=== PATIENT | female | born 1965 | race Caucasian/White ===

== ENCOUNTER → 2023-08-01 | Outpatient (CLI) | payer OTHER, SELFPAY ==
--- NOTE | 2023-08-01 16:00 | ASPSI_PTH ---
PATIENT: SOURAV WOODARD LOC: [facility] U#:[id number] AGE/SX: 57/F ROOM: RE08/01/[address]: Dr. Fish Paul MD : 1965 BED: DIS: 08/01/2023 SPEC #: [id number] RECD: 08/02/23 07:31 STATUS: DELMAR HEATHER #: [id number] GENA: 08/01/23 16:[address]: Fish Paul DEPT: CYTOLOGY RECD BY: eLonor Niño ENTERED: 08/02/23 08:46 SP TYPE: ASP MACIEJ FITZGERALD DR: ANISHA Roberts Tissues: A - Thyroid gland, NOS B - Thyroid gland, NOS C - Thyroid gland, NOS D - Thyroid gland, NOS Procedures: Surgery Specimen Level IV Cytospin Fluid Cytology Other HEADER OPERATION: Fine needle aspiration thyroid nodule right and left PRE-OP DIAGNOSIS: Multinodular goiter TISSUE SUBMITTED: A - FNA left thyroid nodule fluid, B - FNA left thyroid nodule x4 slides, C - FNA right thyroid nodule fluid, D - FNA right thyroid nodule x4 slides DIAGNOSIS CYTOLOGY A. Left thyroid nodule fluid, fine needle aspiration (cytospin and cell block): Consistent with benign follicular/colloid nodule ([place] Category II). Adequate for evaluation. See comment. B. Left thyroid nodule, fine needle aspiration (smears): Consistent with benign follicular/colloid nodule ([place] Category II). Adequate for evaluation. See comment. C. Right thyroid nodule fluid, fine needle aspiration (cytospin and cell block): Consistent with benign follicular/colloid nodule ([place] Category II). Adequate for evaluation. See comment. D. Right thyroid nodule, fine needle aspiration (smears): Consistent with benign follicular/colloid nodule ([place] Category II). Adequate for evaluation. See comment. SJ:rg 08/05/2023 COMMENT Correlation with clinical, radiologic findings and appropriate follow up are necessary. A-D. The [place] System for thyroid diagnostic categorization was used in the evaluation of this case. CYTOLOGY STUDY Slides are reviewed. CYTOLOGY GROSS A - Received is 15 ml of red fluid labeled with the patient's name and and designated per the requisition as left thyroid nodule. Submitted for cytology preparation including cell block. B - Received are four smears labeled with the patient's name and designated per the requisition as left thyroid nodule. Submitted for staining. C - Received is 15 ml of red fluid labeled with the patient's name and and designated per the requisition as right thyroid nodule. Submitted for cytology preparation including cell block. D - Received are four smears labeled with the patient's name and designated per the requisition as right thyroid nodule. Submitted for staining. / abeba 08/02/2023 TC:5 CPT: 86227 x4, 73593 x2
[2023-08-01 17:30] LABS: Calcium,Total 9.2 mg/dL (8.5-10.1)
[2023-08-02 07:41] LABS: PTHIN 48.1 pg/mL (18.4-80.1)
[2023-08-06 16:10] LABS: Thyroid Stim Immunoglob <0.10 IU/L (0.00-0.55)
== END | disposition home or self-care (01) ==
PROVIDERS: PCP Registered Nurse; Referring Provider Surgery; Visit Provider Surgery
DX: E04.2 Nontoxic multinodular goiter (principal)
CPT/HCPCS: 36415; 82310; 83970; 84445; 88108; 88161; 88305

== ENCOUNTER 2023-09-11 12:15 | Observation (INO) | payer OTHER, SELFPAY ==
[2023-09-06 09:40] LABS: Hemoglobin 14.6 g/dL (12.0-15.0); Mean Corp Hgb Conc 32.4 g/dL (32-36); Mean Corpuscular Hgb 30.6 pg (27.0-32.0); Mean Corpuscular Volume 94.3 fL (81-99); Mean Platelet Vol. 9.9 fl (6.2-12.0); Platelet Count 193 K/mm3 (150-450); RBC Distribution Width CV 13.8 % (11.6-14.6); RBC Distribution Width SD 47.8 fl (35.1-43.9); Red Blood Count 4.77 M/mm3 (4.2-5.4); White Blood Count 7.3 K/mm3 (4.4-11.0)
[2023-09-06 09:50] LABS: Prothrombin Time (Protime)PT. 12.7 SECONDS (11.7-14.9)
[2023-09-06 09:51] LABS: Partial Thromboplast Time 29.9 Seconds (24.1-36.2)
[2023-09-06 10:34] LABS: AST(SGOT) 15 U/L (15-37); Alanine Aminotransfer ALT/SGPT 19 U/L (13-56); Albumin, Serum 3.6 g/dL (3.2-5.0); Alkaline Phosphatase 80 U/L (45-117); Anion Gap 4 (5-15); BUN 22 mg/dL (7-18); Bilirubin, Direct 0.23 mg/dL (0.00-0.30); Calcium,Total 9.5 mg/dL (8.5-10.1); Chloride 103 mmol/L (98-107); Creatinine, Serum 0.78 mg/dL (0.55-1.02); EST Glomerular Filtration Rate 80 mL/min (>60); Est Glom Filt Rate - Afr Amer 97 mL/min (>60); Globulin 3.6 g/dL (2.2-4.2); Glucose 98 mg/dL (74-106); Potassium 3.8 mmol/L (3.5-5.1); Protein, Total 7.2 g/dL (6.4-8.2); Sodium Level 140 mmol/L (136-145)
[2023-09-11] VITALS (14 sets, daily range): BP systolic 112–134; BP diastolic 69–89; PULSE 76–88; RESP 12–18; TEMP 36.1–37.3; O2SAT 80–98; BMI 29.7
[2023-09-11] MEDS: Lactated Ringers 1,000 ML 15 ML IV ×3 (06:54→13:49)
--- NOTE | 2023-09-11 07:20 | PCM.HP.BLA ---
History and Physical Date of Service: 08/21/23 MR#: [id number] Acct: [id number] Name: SOURAV WOODARD Rep #: [id number] : 1965 Provider: Dr. Fish Paul MD Age/Sex: 58/F Location: [facility] Status: Signed Intake Vital Signs 08/01/2315:17 08/21/2309:21 Height 5 ft 5 in 5 ft 5 in Weight: 182 lb 185 lb BMI 30.2 30.7 BP 157/103 H Blood Pressure Location Rt brachial Position Sitting Respiration 18 18 Intake Visit Reasons: DISCUSS SURGERY FOR TOTAL THYROIDECTOMY Chief Complaint: thyroid nodules Supervisor Diagnostic Required: No Is patient in pain?: No Allergies Penicillins Allergy (Severe, Verified 08/21/23 09:21) HivesSulfa (Sulfonamide Antibiotics) Allergy (Severe, Verified 08/21/23 09:21) Hivesadhesive Allergy (Intermediate, Verified 08/21/23 09:21) Rashplastibase Allergy (Intermediate, Uncoded 08/21/23 09:21) Hives Medications albuterol sulfate 90 mcg/actuation aerosol inhaler 2 puff inhalation Q6H PRN 04/19/23 [History Confirmed 08/21/23] loratadine 10 mg capsule (Claritin Liqui-Gel) 10 mg PO DAILY 04/19/23 [History Confirmed 08/21/23] pantoprazole 40 mg tablet,delayed release 40 mg PO DAILY 04/19/23 [History Confirmed 08/21/23] rosuvastatin 20 mg tablet 20 mg PO DAILY 04/19/23 [History Confirmed 08/21/23] triamterene 37.5 mg-hydrochlorothiazide 25 mg capsule 1 cap PO DAILY 04/19/23 [History Confirmed 08/21/23] methimazole 10 mg tablet 10 mg PO DAILY #30 tabs 08/04/23 [Rx Confirmed 08/21/23] PFSH Medical History Acid reflux Anxiety Asthma Difficulty swallowing High cholesterol Hypertension Toxic multinodular goiter Surgical History History of cholecystectomy Previous section Family History Mother Thyroid disorder Parathyroid dysfunction Diabetes Kidney disease HypertensionFather LymphomaGrandfather Heart disease DiabetesDaughter Thyroid disorder Social History Smoking Status: Light Smoker (<10/day) alcohol intake: never substance use type: does not use HPI HPI HPI: Patient is a 58-year-old female who is known to me from prior consultation regarding bilateral thyroid nodularity as well as hyperthyroidism. Today a consultation visit came on 08/01/2023. She presents today to discuss further management of her diagnoses. She denies any significant updates and states that her biopsy site is no longer causing her any pain. She questions what the upside's and downsides are of pursuing surgery versus leaving her thyroid intact as is. She wishes to know these answers both from angle of compressive symptoms as well as with respect to her thyroid function. Below is recapitulated from patient's prior visit for ease of review: Patient is a 57-year-old female who presents for evaluation of thyroid nodules that have been under surveillance for some time. She also has a history of hyperthyroidism and has been on methimazole for the past 10 years. They are referred for surgical consultation from Dr. Hunter Vora of endocrinology. This was discovered over 10 years ago and patient states that she has been kept under surveillance with yearly ultrasounds for that time. She also notes that more recently she has been watched with an interval of 6 months due to more suspicious nodularity. She relates that she was on methimazole for at least the past 10 years due to hyperthyroidism. The majority of this following has been through her primary care office. Regarding her nodules more specifically, she reports that she underwent a biopsy of a right-sided thyroid nodule rather remotely and more recently underwent biopsy of a left-sided thyroid nodule, but states that this was done accidentally and that she should have had her right side biopsied. They do experience difficulty with swallowing and states this is primarily with solids. They do complain of a new cough which she states has a nocturnal onset. They do appreciate new voice changes with hoarseness that has been worse over the past 3 to 4 months. They do have a history of snoring. Additionally, their weight has been up approximately 15 to 20 pounds over the past 1 year and they do not have a great explanation for why she has gained this weight because she still believes she makes healthy eating choices but admits that her job does not involve much activity. There is history of recent fatigue, but patient questions whether or not this may be related to a new diagnosis of fibromyalgia. She does note that the fatigue has been worse of late and that she has had some interrupted sleep. They do not have a history of heat or cold intolerance. Other symptoms include: Some lower extremity swelling and a need to wear compression stockings. Screening patient for possible hyperparathyroidism she reports that she lost all of her teeth at a younger age (he mentions that this was likely in her 40s) and notes that her teeth were always consider softer. She now has complete dentures. She also states that she has flimsy nails and they break often. She has no awareness of being told she has high calcium. However, she does report that her mother required parathyroidectomy. In addition to this family history they do have a family history of thyroid disorders in her daughter and maternal grandmother?both requiring thyroidectomy is for goiter. Previous work-up has included thyroid ultrasound performed on 03/04/2023. An FNA has been performed on 03/26/2023. According to documentation this was performed on a midpole nodule that was considered solid and distinct with a maximal dimension of 1.5 cm. Resultant pathology was atypia of undetermined significance. It is noted that patient additionally had a second thyroid nodule of the left lobe that measured 1.8 x 2.7 x 2.4 cm but was determined to be a TI-RADS 2 rating. On the right side she had 2 larger nodules noted that measured 1.7 x 2.0 x 1.5 cm and 2.3 x 2.9 x 3.6 cm. Both of these right-sided nodules were identified within the right lower pole. Overall dimensions of the right lobe were 7.9 x 3.4 x 3.4 cm. The left thyroid lobe was 7.7 x 3.1 x 3.0 cm. Other tests include: TSH: 0.89 ?IU/L, free T3: 3.2 pg/mL, thyroid peroxidase antibodies: 1 international unit/mL (07/16/2023) ROS General General: Yes weight change and fatigue; No appetite, colon cancer, breast cancer or weakness HEENT HEENT: Yes difficulty swallowing; No eye injury, eye surgery, swollen glands or hoarseness Endo Endocrine: Yes thyroid disease; No diabetes mellitus, thyroid cancer, Hair loss, heat intolerance or cold intolerance Skin Skin: No rash or changing moles Breast Breast: No left breast lump, right breast lump, nipple discharge, breast pain, abnormal mammogram, abnormal US or breast enlargement Musc Musculoskeletal: No back problems, arthritis, rheumatoid arthritis, gout or joint pain Cardio Cardiovascular: Yes high blood pressure; No murmur, pacemaker, heart disease, atrial fibrillation, heart attack, heart stent, palpitations, shortness of breat with exertion or chest pain Psych Psychiatric: Yes anxiety; No depression or hearing voices Resp Respiratory: No shortness of breath, No sleep apnea, Yes cough, No COPD, Yes asthma, No emphysema and No wheezing Gastro Gastrointestinal: No abdominal pain, No nausea or vomiting, No diarrhea, Yes constipation, No blood in stool, Yes acid reflux, No hemorrhoids, No ulcers, Yes gallbladder problem and No black,tarry stools Adrien Hematologic: No blood thinners, No blood disorders, No bleeding, No anemia and No blood clots Neuro Neurologic: No system reviewed and no additional complaints, except as documented, No as per HPI, No abnormal gait, No abnormal hearing, No abnormal movements, No abnormal speech, No behavioral changes, No burning sensations, No confusion, No convulsions, No disequilibrium, No dizziness, No localized weakness, No frequent falls, No headache(s), No lack of coordination, No loss of vision, No memory loss, No numbness, No other visual disturbances, No radicular pain, No restless legs, No sensory deficit, No syncope, No tingling, No tremor(s), No weakness and No other Exam Const General: cooperative, healthy appearing, comfortable and no acute distress Orientation: alert, awake and oriented x3 Neck Other: Supple, thyromegaly, no lymphadenopathy, nontender Assessment and Plan Assessment and Plan (1) Toxic multinodular goiter: Status: Chronic Comment: This is a 58-year-old female with a history of toxic multinodular goiter treated with methimazole for at least the past decade who has been under surveillance of her thyroid nodules with decreased intervals in recent years due to increasing suspicion. She presents with history of FNA biopsy of both right and left-sided thyroid nodules. There was evidently a mixup and patient underwent biopsy of a left superior pole TI-RADS 3 nodule rather than a right inferior TI-RADS 3 nodule March 2023. Cytopathology from this FNA procedure returned Winger 3 'atypia of undetermined significance'. Patient denies any prior diagnosis of Graves' disease, autoimmune hyperthyroidism, or toxic nodule but also reports minimal follow-up with endocrinology. Patient also reports a history of many dental caries and soft fingernails. There is a family history for both thyroid and parathyroid disorders. At her last visit FNA biopsy was undertaken of right and left-sided thyroid nodules that both returned consistent with Winger 2 designations. Further, her evaluation for anti-TSI antibodies and hyperparathyroidism were within normal limits. Given her history of hyperthyroidism and history of atypia of undetermined significance for left-sided thyroid nodule, I discussed with her the option of simply proceeding with total thyroidectomy. I stated this would give her the most control over her thyroid function without having to take the methimazole for the rest of her life. Further, it would be the shortest way of addressing her compressive symptomology as she is fairly uniformly enlarged with respect to her thyroid dimensions. We did discuss the surgical options of thyroid lobectomy versus total thyroidectomy and there pros and cons. She expresses understanding of the specific discussion around postoperative hypoparathyroidism and recurrent laryngeal nerve risk. Still, she confirms acceptance of my recommendation to pursue total thyroidectomy. Therefore, we will plan for total thyroidectomy with intraoperative nerve monitoring and postoperative observational stay at her convenience. Plan: ? Total thyroidectomy with intraoperative nerve monitoring (sometime after September 04 per patient's request) I have examined the patient and the H&P has been reviewed. There are no clinical changes since date of exam. Procedure and post procedure expectations were reviewed to include a postoperative observational stay. All questions were answered from patient and her family. Proceed to the operating room for total thyroidectomy as discussed above.
--- NOTE | 2023-09-11 07:30 | THYROID_PTH ---
PATIENT: SOURAV WOODARD LOC: [facility] U#:[id number] AGE/SX: 58/F ROOM: DE313 RE09/11/[address]: Dr. Fish Paul MD : 1965 BED: 1 DIS: 09/12/2023 SPEC #: [id number] RECD: 09/11/23 14:02 STATUS: DELMAR ROMERO #: [id number] GENA: 09/11/23 07:[address]: Fish Paul DEPT: SURGICAL PATHOLOGY RECD BY: Jeniffer Swanson ENTERED: 09/12/23 09:10 SP TYPE: THYROID OTHR DR: Dr. Giuseppe Green MD Tissues: Thyroid gland, NOS Procedures: Surgery Specimen Level V HEADER OPERATION: Thyroidectomy with IONM PRE-OP DIAGNOSIS: Toxic multinodular goiter TISSUE SUBMITTED: Thyroid, stitch juarez right superior pole MICROSCOPIC DIAGNOSIS Thyroid, Thyroidectomy: Multinodular goiter. SJ: 09/16/2023 COMMENT Please make reference to previous specimen [id number], left thyroid nodule and right thyroid nodule with diagnosis of consistent with benign follicular /colloid nodule. MICROSCOPIC DESCRIPTION Slides are reviewed. GROSS DESCRIPTION Received in fixative is one container labeled with the patient's name and designated thyroid. The specimen consists of a thyroid with attached isthmus weighing 100 gm. The right lobe measures 8.0 x 5.0 x 2.5 cm. The left lobe measures 8.0 x 4.0 x 2.5 cm. The isthmus measures 4.0 x 4.0 x 2.0 cm. The specimen is differentially inked as follows: right - blue, left - green, isthmus - red and entire posterior surface - black. Serial sections of the right lobe, left lobe and isthmus reveal gelatinous cut surfaces. No distinct mass lesion is identified. Commissary Representative sections are submitted in 11 cassettes. / AM:abeba 09/12/2023 TC:5 [facility]: [id number]
[2023-09-11] MEDS: Bupivacaine 0.25% 30 ML Vial (08:31)
--- NOTE | 2023-09-11 12:15 | PCM.OPRPT ---
Report of Operation Date of Procedure: 09/11/23 Pre-Operative Diagnosis: 1. Multinodular goiter 2. History of hyperthyroidism Post-Operative Diagnosis: Same Surgery/Procedure Performed:: Total thyroidectomy with intraoperative nerve monitoring Description of Surgical Findings:: ? Thyromegaly with significant bilateral superior lobe extensions and what appears to be a pyramidal lobe extension over the isthmus favoring the left side ? Grossly visually intact right superior, right inferior, and left inferior parathyroid glands ? Visually and audibly intact (by Nims monitor) right and left recurrent laryngeal nerves Surgeon: Fish Paul production internship: Lorie Breaux Type of Anesthesia: General/Supplemental Anesthesiologist: Chaz Reyes Specimen's removed: Total thyroid Drains: None Estimated Blood Loss (mL): 75 Description of Procedure: After appropriate identification in the preoperative holding area, the patient was brought to the operating room where she was positioned supine on the operating room table. Induction of general endotracheal anesthetic was begun and a NIMS tube was placed under glidescope view to confirm coaptation with the vocal cords anteriorly. Tube was then secured and the patient was positioned with a shoulder roll so that her head was in extension but supported. The Nims electrodes were placed and connected to the monitor. We had appropriate resistance showing on the monitor and tapping at the level of the cricoid produce a graphical representation of the impulse on the monitor. Patient's neck was then prepped and draped in usual sterile fashion and a formal timeout was conducted from those present. The lowest skin fold to the sternal notch was selected for incision site (this resided approximately 2 and half fingerbreadths cephalad to the notch). An incision was extended for 3 cm on either side of midline. Electrocautery was used to deepen this incision through the level of the platysma. Subplatysmal flaps were raised with the use of electrocautery and blunt dissection. The strap muscles were then divided along the medial raphe bringing us down to the level of the thyroid. Capsular attachments to the thyroid were divided with the use of LigaSure or bluntly swept away. Retractors were placed to facilitate visualization of the superior pole of the thyroid. There appeared to be an exceptionally high extent of both the superior pole of the thyroid lobe as well as the polar vessels so I had to proceed methodically with division of the remaining fibers of the sternothyroid muscle to allow for downward traction to expose those polar vessels for dissection and division as well. The vessels of the superior pole were sequentially ligated with the use of the LigaSure device. As we moved towards the thyroid gland away from the pole vessels, we were careful to identify the superior parathyroid gland and preserve its vascular pedicle. We then moved inferiorly and divided those polar vessels with LigaSure and separate the remaining strap muscle attachments. The inferior parathyroid gland was grossly visualized and preserved with this division. With the poles freed the thyroid was mobilized medially. Here I continued to bluntly separate the remaining strap muscle fibers from the thyroid capsule and using blunt dissection parallel to the presumed course of the recurrent laryngeal nerve; exposing the tracheoesophageal groove. Here I tested for a signal on our Nims monitor from the recurrent laryngeal nerve, however, I was not able to get a signal and continued elevation of what turned out to be a rather deeply extending tubercle of Zuckerkandl. Once this was elevated I tested again at the cricothyroid joint and this time did have a positive signal from the nerve. The nerve positively identified, I divided the attachments of the thyroid gland to the underlying trachea with the use of LigaSure. As we again approached the nerve insertion of the cricothyroid membrane, I elected to leave a minuscule amount of thyroid tissue intact using a 4-0 silk ligature. The recurrent laryngeal nerve signal was checked prior to the division of any thyroid tissue. In the cephalad portion of the incision, I did encountered what appeared to be a delphian lymph node and took this with the specimen. Once I had assured clearance from the nerve, the remaining thyroid tissue was removed from the anterior surface of the trachea with electrocautery to include the entirety of the thyroid isthmus. There did appeared to be a pyramidal lobe extension when the isthmus was examined superiorly?favoring the left side?so this was dissected free of the thyroid cartilage with a combination of electrocautery and blunt dissection. We then moved to removal of the left thyroid lobe with a similar technique taking care to remove the strap muscles from their capsular attachments to the lobe as once again there proved to be a exceptionally high reach of the left superior pole. To facilitate exposure of the superior pole vessels I elected to divide some of the strap muscles directly overlying the superior pole parenchyma. The superior pole vessels were taken in like fashion with use of LigaSure energy. Although, I remain vigilant for a left superior parathyroid gland none was visualized grossly. The inferior pole vessels and middle thyroid vein were then divided with LigaSure along with some additional strap muscle attachments. As the thyroid was elevated, once again this included a deeply extending tubercle of Zuckerkandl (albeit slightly smaller than on the right). However, as the thyroid gland was medialized I was able to identify the left recurrent laryngeal nerve coursing towards the trachea and shortly thereafter confirmed a strong signal from our Nims monitor. A small thyroid remnant was established with passage of a silk ligature. Elevating this ligature I again tested the nerve and found a positive signal. With this thyroid tissue divided, this permitted us a several millimeter margin between the thyroid gland and the course of the nerve so the remainder of the thyroid gland was removed with electrocautery taking care to protect the trachea below. Our final specimen was marked with a 3-0 Vicryl stitch through the right upper pole and passed off the field for pathologic processing. Both surgical cavities were inspected for hemostasis; closer to the nerve there was some additional oozing and Surgicel hemostatic agent was placed bilaterally while pressure was applied. Once this pressure was relieved, the surgical cavity was again inspected and we found hemostasis to be intact on the right, but there remained a steady oozing on the left just inferior to the insertion of the left recurrent laryngeal nerve. Therefore, I requested some Surgicel snow hemostatic product and applied additional pressure to the area as I rechecked the signal on both of her nerves. The signal was found to be intact. I also was able to appreciate that the nerve inserted into the trachea approximately a millimeter and a half superior to where the bleeding was occurring. On making this observation I elected to use very targeted electrocautery after turning down the effect to 20 and this did result in hemostasis. Also during the confirmation of our nerve signals we were able to visually, grossly confirmed the presence of our right superior, right inferior, and left inferior parathyroid glands that all appeared well perfused. Satisfied with this result, the strap muscles were closed with a running 3-0 Vicryl stitch leaving a small gap at the inferior aspect of the suture line. The platysmal flaps were closed with interrupted 3-0 Vicryl. Some additional local anesthetic was infiltrated throughout the dermis and the skin was closed in a subcuticular fashion using 4-0 Monocryl. Steri-Strips were applied. Telfa and Tegaderm were used as a dressing. The patient was then awakened from anesthetic without event and was taken to PACU for ongoing recovery. Complications None Procedures Endocrine CF Procedures [id number]: [id number] Removal of thyroid
[2023-09-11] MEDS: Calcium Carb/Vitamin D 1 TABLET Tablet PO (18:20)
[2023-09-11] MEDS: Ibuprofen 400 MG Tablet PO ×2 (18:20→23:20)
[2023-09-11] MEDS: Atorvastatin Calcium 40 MG Tablet PO (21:28)
[2023-09-11] MEDS: 0.9% Normal Saline (1000mL) 1,000 ML 125 ML IV (21:31)
[2023-09-11] MEDS: 0.9% Saline Lock 10 ML Syringe IV (21:33)
[2023-09-12 01:59] VITALS: BP 111/70; PULSE 77; RESP 18; TEMP 36.6; O2SAT 98
[2023-09-12] MEDS: 0.9% Normal Saline (1000mL) 1,000 ML 125 ML IV (05:30)
[2023-09-12] MEDS: Ibuprofen 400 MG Tablet PO ×2 (05:30→11:48)
[2023-09-12] MEDS: Levothyroxine 137 MCG Tablet PO (05:30)
[2023-09-12 05:51] VITALS: BP 129/85; PULSE 83; RESP 16; TEMP 36.7; O2SAT 94
[2023-09-12 08:15] LABS: Anion Gap 4 (5-15); BUN 17 mg/dL (7-18); BUN/Creat Ratio 24.1 RATIO (10-20); Calcium,Total 8.1 mg/dL (8.5-10.1); Chloride 109 mmol/L (98-107); EST Glomerular Filtration Rate 91 mL/min (>60); Est Glom Filt Rate - Afr Amer 110 mL/min (>60); Estimated Creatinine Clearance 79.79 ml/min; Glucose 91 mg/dL (74-106); Magnesium 2.1 mg/dL (1.6-2.6); Potassium 3.8 mmol/L (3.5-5.1); Sodium Level 143 mmol/L (136-145)
[2023-09-12 08:17] LABS: Prothrombin Time (Protime)PT. 13.7 SECONDS (11.7-14.9)
[2023-09-12 08:30] LABS: PTHIN 30.3 pg/mL (18.4-80.1)
--- NOTE | 2023-09-12 08:41 | PCM.PN.SRG ---
Subjective Subjective Patient is a 58 y/o F I am following s/p total thyroidectomy by Dr. Paul on 09/11/23. Patient tolerated the procedure well. Patient notes minimal incisional soreness. Patient denies sore throat, nausea, vomiting. Patient was found to be hypoxic during surgery and has required 2 liters of oxygen over night. Patient is a current smoker. Objective Data Objective Data Vital Signs: Vital Signs Temp Pulse Resp BP Pulse Ox O2 Del Method O2 Flow Rate 98.1 F 83 16 129/85 H 94 Nasal Cannula 2 09/12/23 05:51 09/12/23 05:51 09/12/23 05:51 09/12/23 05:51 09/12/23 05:51 09/12/23 05:51 09/12/23 05:51 Oxygen Flow Rate (L/min) 2 Oxygen Delivery Method Nasal Cannula Weight: 178 lb 9.191 oz Body Mass Index (BMI) 29.7 Intake & Output: Intake and Output for Last 24 Hours 09/10/23 09/11/23 09/12/23 23:59 23:59 23:59 Intake Total 1189.50 / 1189.50 997.92 / 997.92 Output Total 500 / 500 Balance 1189.50 / 1189.50 497.92 / 497.92 Lab / Micro Data 09/06/23 08:45 09/12/23 06:45 Labs: Laboratory Results - last 24 hr 09/11/23 12:45: PTH Intact 22.0 09/12/23 06:45: PT 13.7, INR 1.0, Sodium 143, Potassium 3.8, Chloride 109 H, Carbon Dioxide 30.0, Anion Gap 4 L, BUN 17, Creatinine 0.70, Estim Creat Clear Calc 79.79, Est GFR (MDRD) Af Amer 110, Est GFR (MDRD) Non-Af 91, BUN/Creatinine Ratio 24.1 H, Glucose 91, Calcium 8.1 L, Magnesium 2.1, PTH Intact 30.3 Physical Exam Const alert, oriented x3 and no apparent distress Neck Neck Narrative: Anterior neck- incision c/d/i. No erythema or infection noted. Minimal amount of ecchymosis noted. Assessment & Plan Assessment/Plan (1) Toxic multinodular goiter: PLAN: Recommend home qualification test for home O2 Encourage ambulation and I.S. Advance diet to fulls for breakfast and regular soft for lunch Discharge instructions were reviewed Plan for discharge after lunch Charges/Coding Visit Charges Inpatient E&M: 80131 Subs Hosp L1 (No charge; post-op)
[2023-09-12 08:50] VITALS: BP 107/67; PULSE 83; RESP 16; TEMP 36.9; O2SAT 93
--- NOTE | 2023-09-12 09:48 | DCINST_ITS ---
Discharge Instructions Diet Discharge Diet: Light diet - advance as tolerated Activity Discharge Activity: May Drive (In 2-3 days) and May Shower (In 2 days) Lifting Restrictions: 15 pounds for 2 weeks Dressing / Incision Call your doctor if your incision/area has: Continuous Slow Oozing, Sudden Increased Bleeding, Increased Pain/ Swelling, Increased Redness, Foul Smelling Discharge and Swelling at the incision site Call your doctor if you observe: Fever of 101 or Higher Suture Line Care: Avoid Pulling/Pushing and Avoid Pinching/Bending Remove Dressing in: 2 days Cleanse incision/area with: Soap & Water Additional Dressing/Incision Instructions:: Leave steri-strips in place until follow-up Follow Up Care Please Follow Up With: Fish Paul MD When: Please call to schedule a 7-10 day follow-up with Dr. Paul. Please call [phone] Test Results: Test results from this visit will be discussed in further detail at your follow- up appointment, if applicable. Discharge Plan Admission Admit Date/Time: 09/11/23 12:15 Primary Reason for Your Visit: Total thyroidectomy Attending Provider: Fish Paul Primary Care Provider: Giuseppe Green Instructions Additional Instructions / Restrictions: Thyroid Diet ? Start light with soups and soft bland foods. You may advance diet as tolerated. Activity ? You may drive in 2-3 days but not while taking narcotic pain medication. ? I encourage walking. You may go up steps, one at a time. ? Do not swim or use hot tubs for 2 weeks. Lifting ? You may lift up to 15 pounds for the first 2 weeks. Dressings/Incision ? Shower in 2 days Remove op-site in 2 days You may shower OVER surgical glue and/or steri-strips in place ? Do NOT tub bathe for 1 week ? If you have clothing that rubs on your incision, you should protect it with gauze and tape, or an oversized band-aid for the first 3 to 5 days. ? Leave steri-strips in place until follow-up. Recommend continuing to ice for 2 additional days. Medications ? Anesthesia used during surgery and pain medications may cause constipation. I recommend initiating on the day of surgery a fiber supplement like, Metamucil, Citrucel, FiberCon, Benefiber, or a generic form of these medications. 1 heaping tablespoon in water daily. You may continue to utilize any bowel regimen or oral laxatives that you routinely take. ? As long as you are not intolerant to Tylenol, acetaminophen, ibuprofen, Motrin, Advil, Aleve, or similar medications, I would recommend transitioning to these [id number] medicines as soon as possible instead of continued use of narcotic pain medication. We recommend alternating Tylenol and Ibuprofen as needed for pain. You will start taking Levothyroxine every morning. This medication will need to be taken at least 1 hour away from all other medications. You will also start taking a calcium supplement multiple times a day. You will take 2 tablets of calcium in the morning, 1 tablet at lunchtime, and 1 tablet at dinner. Follow up ? You should call [facility] soon after surgery, at option 1 to make a follow up appointment for 7-10 days after your surgery. You will need to obtain blood work, Calcium and PTH, the day of your follow-up appointment. Orders will already be placed in your chart. We have a lab on the ground floor of our building that you will be able to obtain. We recommend you stop smoking to help improve your lung function. Discharge Orders/Prescriptions Prescriptions: New levothyroxine 137 mcg Tablet 137 mcg PO DAILY@0600 30 Days Qty: 30 1RF calcium carbonate-vitamin D3 [Oyster Shell Calcium-Vit D3] 500 mg-5 mcg (200 unit) Tablet 1 tab PO TIDCM 14 Days Qty: 56 0RF Rx Instructions: Take 2 tablets in the morning, 1 tablet at lunchtime, 1 tablet at dinner time Continued albuterol sulfate 90 mcg/actuation HFA aerosol inhaler 2 puff inhalation Q6H PRN (Reason: shortness of breath or wheezing) pantoprazole 40 mg tablet,delayed release (DR/EC) 40 mg PO DAILY rosuvastatin 20 mg tablet 20 mg PO DAILY triamterene-hydrochlorothiazid 37.5-25 mg capsule 1 cap PO DAILY Claritin Liqui-Gel 10 mg capsule 10 mg PO DAILY OBVI BURN 2 cap PO DAILY methimazole 10 mg tablet 10 mg PO DAILY Qty: 30 4RF Referrals / Follow Up: Fish Paul MD [Med Staff - Active Staff] - (Follow-up in 7-10 days. Please call our office for a follow-up appointment) Disposition Disposition (needs filled in before D/C Order can be placed): Home, Self Care
[2023-09-12] MEDS: Calcium Carb/Vitamin D 1 TABLET Tablet PO ×2 (10:40→12:54)
[2023-09-12] MEDS: Pantoprazole Sodium 40 MG Tablet PO (10:40)
--- NOTE | 2023-09-12 11:01 | CASEMGMT ---
Social Work SW met with pt to discuss advance directives.? Pt confirms she has completed a living will and health care POA naming her Jimi Eisenberg.? Pt provided SW with these documents. Copies placed on pt chart. GAIL Galvan
[2023-09-12 11:48] VITALS: O2SAT 90; O2SAT 91
[2023-09-12 12:12] VITALS: O2SAT 93
== END 2023-09-12 13:09 | disposition home or self-care (01) ==
LOC: SDC 17:07 → MS3 17:07
PROVIDERS: Anesthesiology; Physician Assistant; Admitting Provider Surgery; PCP Family Medicine; Referring Provider Surgery; Visit Provider Surgery
PROC: (CPT 60240; principal; 2023-09-11 07:15)
DX: E05.20 Thyrotoxicosis with toxic multinodular goiter without thyrotoxic crisis or storm (principal); R13.10 Dysphagia, unspecified; Z97.2 Presence of dental prosthetic device (complete) (partial); F17.200 Nicotine dependence, unspecified, uncomplicated; E78.00 Pure hypercholesterolemia, unspecified; I10 Essential (primary) hypertension; Z79.899 Other long term (current) drug therapy; K21.9 Gastro-esophageal reflux disease without esophagitis; J45.909 Unspecified asthma, uncomplicated; R09.02 Hypoxemia; Z86.2 Personal history of diseases of the blood and blood-forming organs and certain disorders involving the immune mechanism
CPT/HCPCS: 60240; 00320; 36415; 80048; 80076; 83735; 83970; 85027; 85610; 85730; 88307; 93005; 94668; 96360; 96361; 99221; 99252; 99406; A4648; J7030; J7120; A4216; G0378; G0463; J2405

== ENCOUNTER → 2023-09-18 | Outpatient (CLI) | payer OTHER, SELFPAY ==
[2023-09-18 12:06] LABS: Calcium,Total 9.6 mg/dL (8.5-10.1)
[2023-09-18 12:12] LABS: PTHIN 23.7 pg/mL (18.4-80.1)
== END | disposition home or self-care (01) ==
LOC: LAB 11:06
PROVIDERS: PCP Family Medicine; Referring Provider Surgery; Visit Provider Surgery
DX: E05.20 Thyrotoxicosis with toxic multinodular goiter without thyrotoxic crisis or storm (principal)
CPT/HCPCS: 36415; 82310; 83970

== ENCOUNTER → 2023-10-16 | Outpatient (CLI) | payer OTHER, SELFPAY ==
[2023-10-16 14:56] LABS: PTHIN 41.3 pg/mL (18.4-80.1)
[2023-10-16 15:09] LABS: Calcium,Total 9.1 mg/dL (8.5-10.1); Free T3 2.8 pg/mL (2.18-3.98); T4 Total, Thyroxin 17.5 ug/dL (4.8-13.9); Thyroid Stim Hormone (TSH) 0.24 uIU/mL (0.358-3.74)
== END | disposition home or self-care (01) ==
LOC: LAB 13:30
PROVIDERS: PCP Family Medicine; Referring Provider Surgery; Visit Provider Surgery
DX: E05.20 Thyrotoxicosis with toxic multinodular goiter without thyrotoxic crisis or storm (principal)
CPT/HCPCS: 36415; 82310; 83970; 84436; 84443; 84481

== ENCOUNTER → 2023-12-12 | Outpatient (CLI) | payer OTHER, SELFPAY ==
[2023-12-12 13:58] LABS: PTHIN 45.1 pg/mL (18.4-80.1)
[2023-12-12 14:11] LABS: Free T3 2.9 pg/mL (2.18-3.98); T4 Free Direct 1.59 ng/dL (0.76-1.46); Thyroid Stim Hormone (TSH) 0.06 uIU/mL (0.358-3.74)
--- OUTSIDE RECORDS SUMMARY | 2023-12-12 14:52 | XMS RPT_ITS | CCD ---
Author Name Unknown Address [address] [place] [address] Organization [facility] Care Team Providers Care Barrel Liner Name Role Phone Shona Ruvalcaba MD Primary Care Provider JUAN LUIS THOMAS Attending Unavailable JUAN LUIS THOMAS Primary Care Unavailable JUAN LUIS THOMAS Admitting Unavailable [place] PAPER SEALER - Clint BURNETTE Primary Care Provider [place] PAPER SEALER - LEAD ORACLE DEVELOPERClint Primary Care Provider Shona Ruvalcaba MD Primary Care Provider SHONA RUVALCABA Primary Care Unavailable CLINT CULP Primary Care Unavailable CLINT CULP Attending Unavailable CLINT CULP Referring Unavailable CLINT CULP Attending Unavailable CLINT CULP Referring Unavailable CLITN CULP Primary Care Unavailable CLINT CULP Attending Unavailable CLINT CULP Referring Unavailable SHONA RUVALCABA Primary Care Unavailable SHONA RUVALCABA Primary Care Unavailable STACY SMITH Attending Unavailable Allergies Allergy Classification Reported Allergen(s) Allergy Type Date of Onset Reaction(s) Facility (1 source) Latex Propensity to adverse reactions to drug 10-30-2016 Hives [facility] (10 sources) Penicillins Propensity to adverse reactions to drug 10-30-2016 Hives, Rash [facility] Work Phone: (10 sources) Sulfonamides (Antibiotic) Propensity to adverse reactions to drug 10-30-2016 Rash [facility] Work Phone: (10 sources) Plastibase Propensity to adverse reactions to drug 10-30-2016 [facility] Work Phone: (9 sources) Latex Allergy to substance 10-30-2016 Hives, Rash [facility] Medications Current Medications Medication Drug Class(es) Dates Sig (Normalized) Sig (Original) [id number] 200 actuat albuterol 0.09 mg/actuat metered dose inhaler (10 sources) beta2-Adrenergic Agonist Start: 04-01-2023 take 2 puff(s) by mouth every six hours as needed albuterol 108 (90 Base) MCG/ACT inhaler TAKE 2 PUFFS BY MOUTH EVERY 6 HOURS NEEDED FOR WHEEZE 8.5 each 1 04/01/2023 Active Completed/Discontinued Medications Medication Drug Class(es) Dates Sig (Normalized) Sig (Original) pregabalin 75 mg oral capsule (6 sources) Start: 07-23-2022 End: 07-16-2023 pregabalin (Lyrica) 75 MG capsule Take 75 mg by mouth. 0 07/23/2022 07/16/2023 Discontinued (Therapy completed) Problems Active Problems Problem Classification Problem Date Documented Date Episodic/Chronic Disorders of lipid metabolism (13 sources) Mixed hyperlipidemia; Translations: [Mixed hyperlipidemia] Onset: 08-11-2019 08-11-2019 Chronic Essential hypertension (13 sources) Essential hypertension; Translations: [Essential (primary) hypertension] Onset: 10-30-2016 10-30-2016 Chronic Immunizations and screening for infectious disease (2 sources) Other specified abnormal immunological findings in serum; Translations: [OTH SPEC ABN IMMUNLGIC FIND SERUM] Onset: 08-22-2022 Episodic Malaise and fatigue (4 sources) Fatigue; Translations: [Other fatigue] Onset: 07-16-2023 07-16-2023 Episodic Thyroid disorders (16 sources) Hyperthyroidism; Translations: [Thyrotoxicosis, unspecified without thyrotoxic crisis or storm] Onset: 03-11-2018 03-11-2018 Chronic Past or Other Problems Problem Classification Problem Date Documented Date Episodic/Chronic Other connective tissue disease (1 source) Ganglion cyst; Translations: [Ganglion, unspecified site] Onset: 10-30-2016 Resolved: 02-22-2021 02-22-2021 Episodic Other connective tissue disease (1 source) Lateral epicondylitis of left humerus; Translations: [Lateral epicondylitis, left elbow] Onset: 03-11-2018 Resolved: 08-24-2020 08-24-2020 Episodic Other non-traumatic joint disorders (1 source) Shoulder pain; Translations: [Pain in left shoulder] Onset: 03-11-2018 Resolved: 08-24-2020 08-24-2020 Episodic Other nutritional; endocrine; and metabolic disorders (1 source) Obesity; Translations: [Other obesity due to excess calories] Onset: 08-24-2020 Resolved: 02-22-2021 02-22-2021 Chronic Other screening for suspected conditions (not mental disorders or infectious disease) (6 sources) Mammography abnormal; Translations: [Other abnormal and inconclusive findings on diagnostic imaging of breast] Onset: 03-04-2023 Episodic Residual codes; unclassified (10 sources) Tobacco use and exposure - finding; Translations: [Tobacco use] Onset: 08-23-2021 08-23-2021 Episodic Superficial injury; contusion (1 source) Ecchymosis; Translations: [Contusion of left lower leg, initial encounter] Onset: 12-10-2016 Resolved: 08-24-2020 08-24-2020 Episodic Results Test Name Value Interpretation Reference Range Facil ity Vital Signs Date Time Vital Sign Value Performing Clinician Faci lity 07-16-2023 11:48-0400 Diastolic blood pressure 83 mm[Hg] Stacy Lucasal PAPER SEALER - LEAD ORACLE DEVELOPER Work Phone: [employer] 07-16-2023 11:48-0400 Heart rate 88 /min Stacy Lucasal PAPER SEALER - LEAD ORACLE DEVELOPER Work Phone: [facility] 07-16-2023 11:48-0400 Systolic blood pressure 118 mm[Hg] Stacy Lucas al PAPER SEALER - LEAD ORACLE DEVELOPER Work Phone: [employer] [facility] 07-16-2023 11:06-0400 Body height 165.1 cm Stacy Bridenthal PAPER SEALER - LEAD ORACLE DEVELOPER Work Phone: [employer] [facility] 07-16-2023 11:06-0400 Body mass index (BMI) [Ratio] 30.29 kg/m2 Stacy Vanegasenthal PAPER SEALER - LEAD ORACLE DEVELOPER Work Phone: [employer] 07-16-2023 11:06-0400 Body temperature 98.1 [degF] Stacy Lucasal PAPER SEALER - LEAD ORACLE DEVELOPER Work Phone: [employer] [facility] 07-16-2023 11:06-0400 Body weight 82.56 kg Stacy Smith PAPER SEALER - LEAD ORACLE DEVELOPER Work Phone: [employer] [facility] 07-16-2023 11:06-0400 Respiratory rate 18 /min Stacy Smith PAPER SEALER - LEAD ORACLE DEVELOPER Work Phone: [employer] [facility] 07-16-2023 11:06-0400 SaO2% (BldA) [Mass fraction] 97 % Stacy Smith PAPER SEALER - LEAD ORACLE DEVELOPER Work Phone: [facility] 03-04-2023 13:18-0400 Body height 165.1 cm Clint Chapito PAPER SEALER - LEAD ORACLE DEVELOPER Work Phone: [facility] 03-04-2023 13:18-0400 Body mass index (BMI) [Ratio] 30.95 kg/m2 Clint Culp PAPER SEALER - LEAD ORACLE DEVELOPER Work Phone: [facility] 03-04-2023 13:18-0400 Body weight 84.37 kg Clint Culp PAPER SEALER - LEAD ORACLE DEVELOPER Work Phone: [facility] Encounters Encounter Date Encounter Type Care Provider Facility Start: 09-17-2023 End: 09-17-2023 ambulatory SHONA RUVALCABA [facility] Start: 09-17-2023 Telephone encounter Shona Tuttle MD Work Phone: [facility] Family Medicine Procedures Date Procedure Procedure Detail Performing Clinician Start: 07-16-2023 Lipid 1996 panel - S rona or Plasma Clint Culp PAPER SEALER - LEAD ORACLE DEVELOPER Work Phone: Start: 07-12-2023 Adult depression scr eening assessment Stacy Smith PAPER SEALER - LEAD ORACLE DEVELOPER Work Phone: Start: 03-04-2023 End: 03-04-2023 Screening digital breast tomosynthesis bi Clint Culp PAPER SEALER - LEAD ORACLE DEVELOPER Work Phone: Start: 08-21-2022 Lipid 1996 panel - S rona or Plasma Clint Culp PAPER SEALER - LEAD ORACLE DEVELOPER Work Phone: Start: 06-11-2022 Thyrotropin [Units/v olume] in Serum or Plasma Clint Culp PAPER SEALER - LEAD ORACLE DEVELOPER Work Phone: Start: 03-26-2022 Us breast uni real t zaki with image limited Clint Culp PAPER SEALER - LEAD ORACLE DEVELOPER Work Phone: Start: 03-26-2022 Diagnostic mammograp hy computer-aided detcj uni Clint Culp PAPER SEALER - LEAD ORACLE DEVELOPER Work Phone: Start: 02-23-2022 Mammography Clint hawkins PAPER SEALER - LEAD ORACLE DEVELOPER Work Phone: Plan of Treatment Date Care Activity Detail Author Start: 2030 Pneumococcal Vaccine : Pediatrics (0 to 5 Years) and At-Risk Patients (6 to 64 Years) (2 - PCV) Pneumococcal Vaccine: Pediatrics (0 to 5 Years) and At-Risk Patients (6 to 64 Years) (2 - PCV) [facility] Immunizations Immunization Date Immunization Notes Care Provider Fa [facility] 08-13-2022 influenza, injectabl e, quadrivalent, preservative free Stacy Guilhermeenthal PAPER SEALER - LEAD ORACLE DEVELOPER Work Phone: [facility] 08-13-2022 influenza virus vacc ine, unspecified formulation Stacy Bridenthal PAPER SEALER - LEAD ORACLE DEVELOPER Work Phone: [facility] 12-09-2021 COVID-19, Moderna, Primary or Immunocompromised, PF, 100mcg/0.5mL Clint Chapito PAPER SEALER - LEAD ORACLE DEVELOPER Work Phone: [employer] Work Phone: 08-11-2021 influenza, injectabl e, quadrivalent, preservative free Clint Chapito PAPER SEALER - LEAD ORACLE DEVELOPER Work Phone: [employer] Work Phone: 02-24-2021 COVID-19, Pfizer Pur ple top, DILUTE for use, 12+ yrs, 30mcg/0.3mL dose Clintaspen Culp PAPER SEALER - LEAD ORACLE DEVELOPER Work Phone: [employer] [facility] Work Phone: 02-24-2021 Moderna SARS-CoV-2 Vaccination Stacy Guilhermeenthal PAPER SEALER - LEAD ORACLE DEVELOPER Work Phone: [facility] 01-27-2021 COVID-19, Pfizer Pur ple top, DILUTE for use, 12+ yrs, 30mcg/0.3mL dose Clint Culp PAPER SEALER - LEAD ORACLE DEVELOPER Work Phone: [facility] Work Phone: 01-27-2021 Moderna SARS-CoV-2 Vaccination Stacy Luis PAPER SEALER - LEAD ORACLE DEVELOPER Work Phone: [facility] 08-31-2020 influenza, injectabl e, quadrivalent, preservative free Clint Culp PAPER SEALER - LEAD ORACLE DEVELOPER Work Phone: [facility] Work Phone: 08-24-2020 zoster vaccine recombinant Clint Culp PAPER SEALER - LEAD ORACLE DEVELOPER Work Phone: [facility] 08-11-2019 influenza, injectabl e, quadrivalent, preservative free Clint Culp PAPER SEALER - LEAD ORACLE DEVELOPER Work Phone: [facility] Work Phone: 08-11-2019 pneumococcal polysaccharide vaccine, 23 valent Clint Culp PAPER SEALER - LEAD ORACLE DEVELOPER Work Phone: [facility] Work Phone: 08-11-2019 tetanus toxoid, redu bina diphtheria toxoid, and acellular pertussis vaccine, adsorbed Clint Culp PAPER SEALER - LEAD ORACLE DEVELOPER Work Phone: [facility] Work Phone: 08-11-2019 zoster vaccine recombinant Clint Culp PAPER SEALER - LEAD ORACLE DEVELOPER Work Phone: [facility] 01-19-2014 influenza virus vacc ine, unspecified formulation Clint Culp PAPER SEALER - LEAD ORACLE DEVELOPER Work Phone: [facility] Work Phone: 01-19-2014 influenza, seasonal, injectable Stacy Vanegascorneliusquincy PAPER SEALER - LEAD ORACLE DEVELOPER Work Phone: [facility] Payers Date Payer Category Payer Private Health Insurance [facility] UMR OPT [id number] 2019-Present [address] [address] [place] [address] Commercial [id number] 1965 Unknown [id number] 1958 Unknown [id number] Social History Date Type Detail Facility Start: 10-30-2016 Tobacco smoking status HIIS Smokes t obacco daily [facility] Work Phone: End: 09-11-2023 History of tobacco use Cigarette Smoker [facility] Work Phone: Start: 10-30-2016 End: 07-12-2023 Cigarettes smoked current (pack per day) - Reported 0.5 [facility] Work Phone: Start: 10-30-2016 End: 09-17-2023 Tobacco use and exposure Smokeless tobacco non-user [facility] Work Phone: Start: 02-19-2022 End: 09-17-2023 Alcohol intake Current non-drinker of alcohol (finding) [facility] Work Phone: Start: 08-23-2021 History SDOH Financial 5 [facility] Work Phone: Start: 08-23-2021 History SDOH Food Worry 1 [facility] Work Phone: Start: 08-23-2021 History SDOH Transport Med 2 [facility] Work Phone: Start: 1965 Sex Assigned At Not on file [facility] Work Phone: Start: 02-01-2023 End: 07-16-2023 Exposure to SARS-CoV-2 (event) Not sure [facility] Start: 07-12-2023 End: 09-17-2023 Alcohol Use Disorder Identification Test - Consumption [AUDIT-C] [facility] How often to you hav e a drink containing alcohol? Never [facility] How many standard dr inks containing alcohol do you have on a typical day? Patient does not drink [facility] (I/We) worried wheth er (my/our) food would run out before (I/we) got money to buy more. Never true [employer] In the past 12 month s, was there a time when you were not able to pay the mortgage or rent on time? No [facility] Start: 09-17-2023 Tobacco smoking status NHIS Ex-smoke r [facility] End: 09-11-2023 History of tobacco use Current smoker [facility] Goals Date Patient Goal Desired Activity /State Clinical Notes 02-22-2023 to 09-18-2023 Telephone Encounter - CORINA Espitia CNP - 09/18/2023 4:46 PM ESTTelephone Encounter - CORINA Espitia CNP - 09/18/2023 4:46 PM ESTTracie Smith - 07/16/2023 11:00 AM EDT Note Date & Type Note Facility 09-18-2023 Telephone encount er Note Called patient today to see how she is doing as she was scheduled to have her postop office visit today. States she is feeling much better today. Doing the incentive spirometer. Did go and have her postop check today. States they did not check her blood pressure. Since her most recent blood pressures were elevated we will have her stop back in this week to have blood pressure checked in the office. [facility] 09-18-2023 Miscellaneous Notes Formattin g of this note might be different from the original. Called patient today to see how she is doing as she was scheduled to have her postop office visit today. States she is feeling much better today. Doing the incentive spirometer. Did go and have her postop check today. States they did not check her blood pressure. Since her most recent blood pressures were elevated we will have her stop back in this week to have blood pressure checked in the office. BP readings 132/91 pulse 77 and 131/93. She is taking maxide for hypertension with excellent compliance and no side effects regular Shortness of breath no-low O2 levels today though Medication compliance yes Medication Reconciliation yes BP Medication taken prior to visit yes at what time between 6-7am B/P Reading taken automatic Home Monitoring no Patient advised if follow up is needed, outreach will occur in 48 hours Pt has post-op appointment tomorrow. Came in today to check BP d/t fatigue and low energy levels. Her Oxygen saturation was reading between 88-94%. Ashley came in and spoke to pt and advised her to use her spirometer a couple times an hour while she is awake. Pt would also like to know what might be able to help her quit smoking for good, she has not smoked since 09/11/23 but still has the urge but is afraid to put any nicotine in her body since she has not had any since 09/11/23. Ashley advised OTC nicotine gum or lozenges, no patches d/t adhesive allergy. Start at lowest dose. documented in this encounter [facility] 09-17-2023 Telephone encount er Note BP readings 132/91 pulse 77 and 131/93. She is taking maxide for hypertension with excellent compliance and no side effects regular Shortness of breath no-low O2 levels today though Medication compliance yes Medication Reconciliation yes BP Medication taken prior to visit yes at what time between 6-7am B/P Reading taken automatic Home Monitoring no Patient advised if follow up is needed, outreach will occur in 48 hours Pt has post-op appointment tomorrow. Came in today to check BP d/t fatigue and low energy levels. Her Oxygen saturation was reading between 88-94%. Ashley came in and spoke to pt and advised her to use her spirometer a couple times an hour while she is awake. Pt would also like to know what might be able to help her quit smoking for good, she has not smoked since 09/11/23 but still has the urge but is afraid to put any nicotine in her body since she has not had any since 09/11/23. Ashley advised OTC nicotine gum or lozenges, no patches d/t adhesive allergy. Start at lowest dose. [facility] 09-02-2023 Telephone encount er Note Reviewed chart. Refill appropriate. RX sent. [facility] 09-02-2023 Miscellaneous Notes Formattin g of this note might be different from the original. Reviewed chart. Refill appropriate. RX sent. Prescription Request: Last medication check: not found Last physical exam: 07/16/23 Next scheduled appointment: not found Last date of refill on this medication 03/06/23 #90 1 refill documented in this encounter [facility] 09-02-2023 Telephone encount er Note Prescription Request: Last medication check: not found Last physical exam: 07/16/23 Next scheduled appointment: not found Last date of refill on this medication 03/06/23 #90 1 refill [facility] 07-16-2023 Evaluation + Plan note Associated Problem(s): Other fatigue Check thyroid functioning (per endocrine), cmp. ROS and PE unremarkable. Unknown etiology. Follow up if not improving. [facility] 07-16-2023 Evaluation + Plan note Associated Problem(s): Mixed hyperlipidemia Check lipid panel- continue rosuvastatin 20 mg daily [facility] 07-16-2023 Miscellaneous Notes Associate d Problem(s): Other fatigue Check thyroid functioning (per endocrine), cmp. ROS and PE unremarkable. Unknown etiology. Follow up if not improving. Associated Problem(s): Mixed hyperlipidemia Check lipid panel- continue rosuvastatin 20 mg daily Associated Problem(s): Hyperthyroidism Managed by endocrinology. Follow up as directed. Associated Problem(s): Essential hypertension Controlled. Continue triamterene-hydrochlorothiazide 37.5 -25 mg daily. Check cmp documented in this encounter [facility] 07-16-2023 Evaluation + Plan note Associated Problem(s): Hyperthyroidism Managed by endocrinology. Follow up as directed. [facility] 07-16-2023 Evaluation + Plan note Associated Problem(s): Essential hypertension Controlled. Continue triamterene-hydrochlorothiazide 37.5 -25 mg daily. Check cmp [facility] 07-16-2023 History of Presen t illness Narrative Images from the original note were not included. 07/16/2023 Rayne Eisenberg (: 1965) is a 57 y.o. female , Established patient, here for evaluation of the following chief complaint(s): Annual Exam, Health Maintenance (Colonoscopy-talk to Ashley about it-unsure/Cervical CA screen-will call to schedule with OBGYN/COVID vaccine #4-only had 3/MMR-had as a child/Hep B vaccine-will think about it), and Blood Work (CMP, Lipid, TSH, will come in fasting) ASSESSMENT/PLAN: 1. Annual physical exam 2. Hyperthyroidism Assessment & Plan: Managed by endocrinology. Follow up as directed. 3. Essential hypertension Assessment & Plan: Controlled. Continue triamterene-hydrochlorothiazide 37.5 -25 mg daily. Check cmp Orders: - Lipid panel - Comprehensive metabolic panel 4. Mixed hyperlipidemia Assessment & Plan: Check lipid panel- continue rosuvastatin 20 mg daily Orders: - Lipid panel Follow up for as directed pending test results. SUBJECTIVE/OBJECTIVE: JUANY - Rayne Eisenberg (: 1965) is a 57 y.o. female , Established patient, here for the evaluation of the following chief complaint(s): Annual Exam, Health Maintenance (Colonoscopy-talk to Ashley about it-unsure/Cervical CA screen-will call to schedule with OBGYN/COVID vaccine #4-only had 3/MMR-had as a child/Hep B vaccine-will think about it), and Blood Work (CMP, Lipid, TSH, will come in fasting) Hyperthyroidism- today established with [facility] in [facility]. labs ordered by [employer] included - thyroid peroxidase ab, free t4, free t3, TSH Will likely have thyroid removed. Will be seeing surgeon referred by [employer]. Sees classification analyst- will follow up with them for pap - states she is due Hypertension- triamterene-hydrochlorothiazide 37.5-25 mg daily. Colon cancer screening- reports that she has cologaurd at home and needs to complete. Prior to Admission medications Medication Sig Start Date End Date Taking? Authorizing Provider albuterol 108 (90 Base) MCG/ACT inhaler TAKE 2 PUFFS BY MOUTH EVERY 6 HOURS NEEDED FOR WHEEZE 04/01/23 Yes Shona Ruvalcaba MD lidocaine-prilocaine (Emla) 2.5-2.5 % cream 09/13/22 Yes Historical Provider, methIMAzole (Tapazole) 5 MG tablet TAKE 2 TABLETS BY MOUTH EVERY DAY 04/29/23 Yes Stacy Smith APRN - [facility] pantoprazole (ProtoNix) 40 MG EC tablet Take 1 tablet (40 mg) by mouth every morning (before breakfast). 03/06/23 Yes Clint Culp APRN - [facility] rosuvastatin (Crestor) 20 MG tablet TAKE 1 TABLET BY MOUTH EVERY DAY 04/29/23 Yes Stacy Smith APRN - LEAD ORACLE DEVELOPER triamterene-hydrochlorothiazide (Maxzide-25) 37.5-25 MG tablet take 1 tablet by mouth once daily 02/22/23 Yes Stacy Smith APRN - [facility] pregabalin (Lyrica) 75 MG capsule Take 75 mg by mouth. 07/23/22 Historical Provider, Review of Systems Constitutional: Positive for fatigue (yes not new). Negative for activity change, appetite change, chills and fever. HENT: Allergies - takes claritin Respiratory: Negative for cough, chest tightness, shortness of breath and wheezing. Cardiovascular: Negative for chest pain, palpitations and leg swelling. Gastrointestinal: Negative for abdominal pain, constipation (bouts constipation), diarrhea, nausea and vomiting. Genitourinary: Negative for difficulty urinating and menstrual problem. Musculoskeletal: Occasional flare ups fibromyalgia Skin: Negative. Neurological: Negative for dizziness, seizures, numbness and headaches. Psychiatric/Behavioral: Positive for decreased concentration. Negative for agitation and sleep disturbance (takes melatonin helps). The patient is not nervous/anxious. Vitals: 07/16/23 1106 07/16/23 1148 BP: (!) 154/99 118/83 Pulse: 85 88 Resp: 18 Temp: 36.7 C (98.1 F) TempSrc: Oral SpO2: 97% Weight: 182 lb (82.6 kg) Height: 5' 5 (1.651 m) Physical Exam Constitutional: General: She is not in acute distress. Appearance: Normal appearance. She is obese. She is not ill-appearing. HENT: Head: Normocephalic. Right Ear: There is no impacted cerumen. Left Ear: There is no impacted cerumen. Nose: Nose normal. No congestion or rhinorrhea. Mouth/Throat: Mouth: Mucous membranes are moist. Pharynx: Oropharynx is clear. Eyes: Extraocular Movements: Extraocular movements intact. Conjunctiva/sclera: Conjunctivae normal. Pupils: Pupils are equal, round, and reactive to light. Cardiovascular: Rate and Rhythm: Normal rate and regular rhythm. Abdominal: General: Abdomen is flat. Bowel sounds are normal. Palpations: Abdomen is soft. Tenderness: There is no abdominal tenderness. Musculoskeletal: General: Normal range of motion. Cervical back: Normal range of motion and neck supple. Lymphadenopathy: Cervical: No cervical adenopathy. Skin: General: Skin is warm and dry. Neurological: Mental Status: She is alert and oriented to person, place, and time. Psychiatric: Mood and Affect: Mood normal. Behavior: Behavior normal. Thought Content: Thought content normal. Judgment: Judgment normal. An electronic signature was used to authenticate this note. CORINA Espitia CNP 07/16/2023 2:02 PM Patient was identified by name and Date of . documented in this encounter [facility] 04-03-2023 Note New referral placed per request. [facility] 04-01-2023 Note Referral placed with [facility] Endocrinology [place] location. [facility] 04-01-2023 Note Patient changed her mind and said to go ahead and place endo referral, I had previously sent you a note stating she was going to check with insurance first. [facility] 02-22-2023 Telephone encount er Note Reviewed chart. Refill appropriate. RX sent. [facility] 02-22-2023 Miscellaneous Notes Formattin g of this note might be different from the original. Reviewed chart. Refill appropriate. RX sent. /Prescription Request: Last medication check: 02/19/22 Last physical exam: 08/21/22 Next scheduled appointment: none Last date of refill on this medication 08/21/22 90 days 1 refill documented in this encounter [facility] 02-22-2023 Telephone encount er Note /Prescription Request: Last medication check: 02/19/22 Last physical exam: 08/21/22 Next scheduled appointment: none Last date of refill on this medication 08/21/22 90 [facility] [employer] Work Phone: Evaluation note* Diagnosis Screening mammogram for breast cancer- Primary documented in this encounter [facility]* Diagnosis Screening mammogram for breast cancer documented in this encounter [facility]* Diagnosis Nontoxic single thyroid nodule Nontoxic uninodular goiter documented in this encounter [facility]* Diagnosis Annual physical exam- Primary Routine general medical examination at a health care facility Hyperthyroidism Thyrotoxicosis without mention of goiter or other cause, without mention of thyrotoxic crisis or storm Essential hypertension Unspecified essential hypertension Mixed hyperlipidemia documented in this encounter [facility] Advance Directives No Advanced Directives Records FoundDocuments on File Type Date Recorded Patient 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 [address] PCP - General 03/21/22 Barrel Liner Relationship Specialty Start Date End Date Clint Culp PAPER SEALER - LEAD ORACLE DEVELOPER [address] [place] [address] PCP - General 03/21/22 Barrel Liner Relationship Specialty Start Date End Date Clint Culp PAPER SEALER - LEAD ORACLE DEVELOPER [address] [place] [address] PCP - General 03/21/22 03/04/23 Barrel Liner Relationship Specialty Start Date End Date Clint Culp S, PAPER SEALER - LEAD ORACLE DEVELOPER [address] [place] [address] PCP - General 03/21/22 03/04/23 Barrel Liner Relationship Specialty Start Date End Date Shona Ruvalcaba MD [address] [place] [address] PCP - General Family Medicine 03/05/23 Barrel Liner Relationship Specialty Start Date End Date Shona Ruvalcaba MD [address] [place] [address] PCP - General Family Medicine 03/05/23 Barrel Liner Relationship Specialty Start Date End Date Shona Ruvalcaba MD [address] [place] [address] PCP - General Family Medicine 03/05/23 INFORMATION SOURCE (unrecogn ized section and content) DATE CREATED AUTHOR AUTHOR'S ORGANIZ ATION 08/22/2022 [facility] DATE CREATED AUTHOR AUTHOR'S ORGANIZ ATION 09/19/2023 [facility] Reason for Visit (unrecogniz ed section and content) Reason Comments Annual Exam Health Maintenance Colonoscopy-talk to Ashley about it-unsureCervical CA screen- will call to schedule with OBGYNCOVID vaccine #4-only had 3MMR-had as a childHep B vaccine-will think about it Blood Work CMP, Lipid, TSH, armando l come in fasting Reason Onset Date Comments Blood Pressure Check 09/17/2023 FOR RECORDS PERTAINING TO PATIENTS WHO ARE OR HAVE BEEN ENROLLED IN A CHEMICAL DEPENDENCY/SUBSTANCEABUSE PROGRAM, SOME INFORMATION MAY BE OMITTED. This clinical summary was aggregated from multiple sources. Caution should be exercised in using it in the provision of clinical care. This summary normalizes information from multiple sources, and as a consequence, information in this document may materially change the coding, format and clinical context of patient data. In addition, data may be omitted in some cases. CLINICAL DECISIONS SHOULD BE BASED ON THE PRIMARY CLINICAL RECORDS. [facility]. provides no warranty or guarantee of the accuracy or completeness of information in this document.
== END | disposition home or self-care (01) ==
LOC: LAB 12:49
PROVIDERS: PCP Family Medicine; Referring Provider Surgery; Visit Provider Surgery
DX: E89.0 Postprocedural hypothyroidism (principal)
CPT/HCPCS: 36415; 82310; 83970; 84439; 84443; 84481

== ENCOUNTER → 2024-02-27 | Outpatient (CLI) | payer OTHER, SELFPAY ==
[2024-02-27 11:11] LABS: PTHIN 22.7 pg/mL (18.4-80.1)
[2024-02-27 11:21] LABS: Calcium,Total 9.2 mg/dL (8.5-10.1); Free T3 2.2 pg/mL (2.18-3.98); T4 Free Direct 1.43 ng/dL (0.76-1.46); Thyroid Stim Hormone (TSH) 1.01 uIU/mL (0.358-3.74)
== END | disposition home or self-care (01) ==
LOC: LAB 10:16
PROVIDERS: Surgery; PCP Family Medicine; Visit Provider Internal Medicine Endocrinology, Diabetes & Metabolism
DX: E89.0 Postprocedural hypothyroidism (principal)
CPT/HCPCS: 36415; 82310; 83970; 84439; 84443; 84481

== ENCOUNTER → 2025-05-13 | Outpatient (CLI) | payer OTHER, SELFPAY | END | disposition home or self-care (01) | LOC: LAB 10:37 | PROVIDERS: PCP Family Medicine; Referring Provider Internal Medicine Endocrinology, Diabetes & Metabolism; Visit Provider Internal Medicine Endocrinology, Diabetes & Metabolism | DX: E89.0 Postprocedural hypothyroidism (principal) | CPT/HCPCS: 36415; 84439; 84443 ==